=== PATIENT | female | born 1995 | race American Indian/Alaskan Native ===

== ENCOUNTER 2017-12-29 11:06 | Emergency (ER) | payer MEDICAID, OTHER ==
[2017-12-29 11:16] VITALS: BP 119/74
[2017-12-29 12:45] LABS: Bacteria,Urine 1+ /HPF (Negative); Bilirubin,Urine NEG (Negative); Blood,Urine NEG (Negative); Color,Urine Yellow (Yellow); Protein,Urine <15 mg/dL mg/dL (Negative)
[2017-12-29 14:05] LABS: Hematocrit 37.6 % (30.3-42.9); Hemoglobin 12.6 gm/dl (10.1-14.3); Mean Corpuscular HGB Conc 33 % (30-34); Mean Corpuscular Hemoglobin 29 pg (28-32); Mean Corpuscular Volume 87 fl (79-97); Platelet Count 164 K/mm3 (140-440); Red Blood Count 4.33 M/mm3 (3.65-5.03); Red Cell Distribution Width 14.7 % (13.2-15.2)
[2017-12-29 14:12] LABS: BUN/Creatinine Ratio 10; Blood Urea Nitrogen 4 mg/dL (7-17); Hemolysis Index 12
--- NOTE | 2017-12-29 15:22 | Emergency Department Report ---
ED HPI - General Chief complaint: Vaginal Bleeding Stated complaint: /SPOTTING/POSS MISCARRIAGE Time Seen by Provider: 12/29/17 13:42 Source: patient Mode of arrival: Ambulatory Limitations: No Limitations - History of Present Illness Complaint: vaginal bleeding -: Gradual Improves with: none Worsens with: none Associated symptoms: vaginal bleeding. denies: denies other symptoms, nausea/ vomiting, vaginal discharge, abdominal pain, dysuria, headache, vision changes, malaise, dysparuenia, rash, seizure, shortness of breath, syncope, weakness Vaginal bleeding: light :: Yes Number of weeks : 7 OB History - Current : other ( A4-- 2 SPON AND 2 ELECTIVE AB) - Related Data : 7 Para: 1 Ab: 5 Home Medications Medication Instructions Recorded Confirmed Last Taken Vit No.126/Iron/Folic 1 each PO DAILY 10/24/14 10/24/14 Unknown [Classic Tablet] Previous Rx's Medication Instructions Recorded Last Taken Type Acetaminophen/Codeine [Tylenol #3] 1 tab PO Q6H PRN #16 tab 10/30/14 Unknown Rx Allergies Allergy/AdvReac Type Severity Reaction Status Date / Time No Known Allergies Allergy Verified 10/24/14 12:45 ED Review of Systems ROS: Stated complaint: /SPOTTING/POSS MISCARRIAGE Other details as noted in HPI Comment: All other systems reviewed and negative Constitutional: denies: chills, fever Eyes: denies: eye pain ENT: denies: ear pain, throat pain Respiratory: denies: cough, orthopnea Cardiovascular: denies: palpitations, dyspnea on exertion Endocrine: denies: excessive sweating, intolerance to cold Gastrointestinal: denies: abdominal pain, nausea, vomiting, diarrhea, constipation, hematemesis, melena, hematochezia Genitourinary: other (VAG BLEED IN PREG). denies: urgency, dysuria, frequency, hematuria, discharge, abnormal menses, dyspareunia Musculoskeletal: denies: back pain Skin: denies: rash, lesions Neurological: denies: headache, weakness Psychiatric: denies: anxiety, depression Hematological/Lymphatic: denies: easy bleeding ED Past Medical Hx - Past Medical History Hx Sickle Cell Disease: Yes (trait) - Surgical History Additional Surgical History: D&C - Social History Smoking Status: Never Smoker Substance Use Type: Alcohol - Medications Home Medications: Home Medications Medication Instructions Recorded Confirmed Last Taken Type Vit No.126/Iron/Folic 1 each PO DAILY 10/24/14 10/24/14 Unknown History [Classic Tablet] Acetaminophen/Codeine [Tylenol #3] 1 tab PO Q6H PRN #16 tab 10/30/14 Unknown Rx ED Physical Exam - General Limitations: No Limitations General appearance: alert - Head Head exam: Present: atraumatic - Eye Eye exam: Present: normal appearance Pupils: Present: normal accommodation - ENT ENT exam: Present: mucous membranes moist - Neck Neck exam: Present: normal inspection - Respiratory Respiratory exam: Present: normal lung sounds bilaterally - Cardiovascular Cardiovascular Exam: Present: regular rate - GI/Abdominal GI/Abdominal exam: Present: soft, normal bowel sounds. Absent: distended, tenderness, guarding, rebound, rigid, diminished bowel sounds - Rectal Rectal exam: Present: deferred - Extremities Exam Extremities exam: Present: normal inspection - Back Exam Back exam: Present: normal inspection, full ROM. Absent: tenderness, CVA tenderness (R) - Neurological Exam Neurological exam: Present: alert, oriented X3, normal gait - Psychiatric Psychiatric exam: Present: normal affect, normal mood - Skin Skin exam: Present: warm, dry, intact, normal color. Absent: rash ED Course Vital Signs 12/29/17 11:12 Temperature 98.4 F Pulse Rate 74 Respiratory 18 Rate Blood Pressure 119/74 O2 Sat by Pulse 100 Oximetry ED Medical Decision Making - Lab Data Result diagrams: 12/29/17 13:43 12/29/17 13:43 - Radiology Data Radiology results: report reviewed, image reviewed - Medical Decision Making [id number]-- 2 ABORTIONS - Differential Diagnosis TRHEATENED OB Critical care attestation.: If time is entered above; I have spent that time in minutes in the direct care of this critically ill patient, excluding procedure time. ED Disposition Clinical Impression: Threatened Disposition: DC-01 TO HOME OR SELFCARE Is pt being admited?: No Does the pt Need Aspirin: No Condition: Stable Instructions: Threatened Miscarriage (ED), (ED) Additional Instructions: SAFE SEX PELVIC REST HYDRATE WELL NO CIG NO ALCOHOL NO DRUGS FOLLOW UP WITH OBGYN REFERRAL GIVEN HERE- SEE BELOW YOU SHOULD BE SEEN IN 48 HOURS FOR RECHECK Referrals: PRIMARY CARE, [Primary Care Provider] - 3-5 Days [facility] [Provider Group] - 3-5 Days Time of Disposition: 17:54
--- NOTE | 2017-12-29 17:51 | Ultrasound Report ---
FINAL REPORT EXAM: US OB < = 14 WEEKS FETUS HISTORY: VAG BLEED PREG TECHNIQUE: PRIORS: None. FINDINGS: Gestational sac present within the uterus. There is pole with crown-rump length of 1.4 millimeters corresponding to estimated gestational age 7 weeks 5 days with estimated date of delivery August 12, 2018 A yolk sac is identified No free fluid identified in the cul-de-sac. cardiac activity is present with heart rate of 164 beats per minute Right ovary is 3.0 x 1.2 x 2.6 centimeters Left ovary is 3.9 x 2.6 x 3.5 centimeters Noted is a 1.8 centimeter left ovarian cyst IMPRESSION: Single live intrauterine gestation estimated at 7 weeks 5 days
--- NOTE | 2017-12-29 17:51 | Ultrasound Report ---
FINAL REPORT EXAM: US OB TRANSVAGINAL HISTORY: VAG BLEED PREG TECHNIQUE: Ultrasound transvaginal PRIORS: None. FINDINGS: Gestational sac present within the uterus. There is pole with crown-rump length of 1.4 millimeters corresponding to estimated gestational age 7 weeks 5 days with estimated date of delivery August 12, 2018 A yolk sac is identified No free fluid identified in the cul-de-sac. cardiac activity is present with heart rate of 164 beats per minute Right ovary is 3.01.2 x 2.6 centimeters Left ovary is 3.9 x 2.6 x 3.5 centimeters Noted is a 1.8 centimeter left ovarian cyst IMPRESSION: Single live intrauterine gestation estimated at 7 weeks 5 days
== END 2017-12-29 18:09 | disposition home or self-care (01) ==
LOC: ED 11:06
DX: O20.0 Threatened abortion (principal); Z3A.01 Less than 8 weeks gestation of pregnancy
CPT/HCPCS: 36415; 76801; 76817; 80048; 81001; 84702; 85027; 86900; 86901; 99284

== ENCOUNTER 2021-05-10 20:15 | Emergency (ER) | payer BC, OTHER ==
[2021-05-11] MEDS ORDERED: ONDANSETRON 4 MG ODT TAB PO ONE (00:25)
--- NOTE | 2021-05-11 00:25 | Emergency Department Report ---
ED General Adult HPI - General Chief complaint: Upper Respiratory Infection Stated complaint: FLU SYMPTOMS Time Seen by Provider: 05/10/21 23:46 Source: patient Mode of arrival: Ambulatory Limitations: No Limitations - History of Present Illness Initial comments: Patient presents with respiratory symptoms associate with GI symptoms. The last 3 days she has had runny nose, cough, congestion, fevers, vomiting, and diarrhea. She has had no dysuria or frequency. There is no rash. She has not had any sick contacts. She works from home. She did a Covid test today which was reportedly negative. She states that she came in because she could not keep anything down and she was worried she was dehydrated. Patient has had no trauma. She has had no travel. There has been no antibiotic exposure. - Related Data Home Medications Medication Instructions Recorded Confirmed Last Taken Vit No.126/Iron/Folic 1 each PO DAILY 10/24/14 10/24/14 Unknown [Classic Tablet] Previous Rx's Medication Instructions Recorded Last Taken Type Ondansetron [Zofran Odt] 4 mg PO Q8HR #10 tab.rapdis 12/29/17 Unknown Rx Albuterol Sulfate [Proventil Hfa] 2 puff IH 4XD #1 inh 05/11/21 Unknown Rx Benzonatate [Tessalon Perles] 100 mg PO Q8HR #21 cap 05/11/21 Unknown Rx Hyoscyamine Subl [Levsin Sl 0.125 0.125 mg SL Q6HR PRN #15 tab 05/11/21 Unknown Rx TAB] Ondansetron [Zofran ODT TAB] 8 mg PO QID PRN #15 tab.rapdis 05/11/21 Unknown Rx Allergies Allergy/AdvReac Type Severity Reaction Status Date / Time No Known Allergies Allergy Verified 10/24/14 12:45 ED Review of Systems ROS: Stated complaint: FLU SYMPTOMS Other details as noted in HPI Comment: All other systems reviewed and negative Constitutional: see HPI Eyes: denies: eye pain ENT: denies: throat pain Respiratory: see HPI Cardiovascular: denies: chest pain Endocrine: denies: unexplained weight loss Gastrointestinal: as per HPI Genitourinary: denies: dysuria Musculoskeletal: denies: back pain Skin: denies: rash Neurological: denies: headache Hematological/Lymphatic: denies: easy bruising ED Past Medical Hx - Past Medical History Previous Medical History?: Yes Hx Sickle Cell Disease: Yes (trait) - Surgical History Additional Surgical History: D&C - Family History Family history: other (Sickle trait) - Social History Smoking Status: Never Smoker Substance Use Type: None - Medications Home Medications: Home Medications Medication Instructions Recorded Confirmed Last Taken Type Vit No.126/Iron/Folic 1 each PO DAILY 10/24/14 10/24/14 Unknown History [Classic Tablet] Ondansetron [Zofran Odt] 4 mg PO Q8HR #10 tab.rapdis 12/29/17 Unknown Rx Albuterol Sulfate [Proventil Hfa] 2 puff IH 4XD #1 inh 05/11/21 Unknown Rx Benzonatate [Tessalon Perles] 100 mg PO Q8HR #21 cap 05/11/21 Unknown Rx Hyoscyamine Subl [Levsin Sl 0.125 0.125 mg SL Q6HR PRN #15 tab 05/11/21 Unknown Rx TAB] Ondansetron [Zofran ODT TAB] 8 mg PO QID PRN #15 tab.rapdis 05/11/21 Unknown Rx ED Physical Exam - General Limitations: No Limitations, Other (Pulse ox noted and normal) General appearance: alert, in no apparent distress - Head Head exam: Present: atraumatic, normocephalic - Eye Eye exam: Present: normal appearance, EOMI. Absent: scleral icterus - ENT ENT exam: Present: normal orophraynx, normal external ear exam - Neck Neck exam: Present: normal inspection. Absent: meningismus - Respiratory Respiratory exam: Present: normal lung sounds bilaterally. Absent: respiratory distress - Cardiovascular Cardiovascular Exam: Present: regular rate, normal rhythm - GI/Abdominal GI/Abdominal exam: Present: soft. Absent: distended, tenderness - Extremities Exam Extremities exam: Present: normal capillary refill - Back Exam Back exam: Absent: CVA tenderness (R), CVA tenderness (L) - Neurological Exam Neurological exam: Present: alert, oriented X3, CN II-XII intact, normal gait. Absent: motor sensory deficit - Psychiatric Psychiatric exam: Present: normal affect, normal mood - Skin Skin exam: Present: warm, dry ED Course Vital Signs 05/10/21 05/11/21 23:39 00:54 Temperature 99.5 F Pulse Rate 89 90 Respiratory 18 14 Rate Blood Pressure 111/70 Blood Pressure 115/73 [Right] O2 Sat by Pulse 97 100 Oximetry - Reevaluation(s) Reevaluation #1: 05/11/21 01:04 Patient was given Zofran and discharged ED Medical Decision Making - Medical Decision Making Patient presents with a constellation of symptoms that are consistent with a viral illness. She does not appear to be clinically dehydrated. She does not have intractable vomiting and has not had vomiting here. Patient has no peritonitis on exam. There is no distention tympany to suggest bowel obstruction. She does not have adventitious breath sounds suggestive of pneumonia. Patient was treated symptomatically and referred for outpatient evaluation and follow-up. She reports having a negative coronavirus test, although that could have been a false negative. She was not vaccinated against influenza and this could also be influenza. Regardless, she has been ill for 3 days and would not benefit from Tamiflu. Critical Care Time: No Critical care attestation.: If time is entered above; I have spent that time in minutes in the direct care of this critically ill patient, excluding procedure time. ED Disposition Clinical Impression: Viral URI, Dehydration Nausea & vomiting Qualifiers: Vomiting type: unspecified Qualified Code(s): R11.2 - Nausea with vomiting, unspecified Disposition: 01 HOME / SELF CARE / HOMELESS Is pt being admited?: No Condition: Stable Instructions: Viral Respiratory Infection, [id number], Dehydration, Adult, [id number], Rehydration, Adult, Nausea and Vomiting, Adult Additional Instructions: Have a bland diet. Drink plenty water. Return for problems. Follow-up with your regular doctor or the referral doctor for recheck. Prescriptions: Hyoscyamine Subl [Levsin Sl 0.125 TAB] 0.125 mg SL Q6HR PRN #15 tab PRN Reason: abd cramps Albuterol Sulfate [Proventil Hfa] 2 puff IH 4XD #1 inh Benzonatate [Tessalon Perles] 100 mg PO Q8HR #21 cap Ondansetron [Zofran ODT TAB] 8 mg PO QID PRN #15 tab.rapdis PRN Reason: Nausea Referrals: PRIMARY CAREMD [Referring] - 3-5 Days BELLE MATSON MD [Staff Physician] - 3-5 Days
[2021-05-11 01:09] VITALS: BP 115/73
== END 2021-05-11 00:56 | disposition home or self-care (01) ==
LOC: ED 20:15
DX: J06.9 Acute upper respiratory infection, unspecified (principal); B97.89 Other viral agents as the cause of diseases classified elsewhere; E86.0 Dehydration; R11.2 Nausea with vomiting, unspecified; Z79.899 Other long term (current) drug therapy
CPT/HCPCS: 99282; J3490; Q0162